=== PATIENT | female | born 1985 | race Caucasian/White ===

== ENCOUNTER 2023-03-03 10:32 | Emergency (ER) | payer MEDICAID, SELFPAY ==
[2023-03-03 10:37] VITALS: BP 133/97; PULSE 90; RESP 18; TEMP 36.6; O2SAT 100; BMI 21.6
[2023-03-03 10:38] VITALS: BP 133/97
--- NOTE | 2023-03-03 10:48 | ECG_ITS ---
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
--- NOTE | 2023-03-03 10:48 | XR_ITS ---
The [address] [address] Patient Name: MIHAELA GAN MRN: [id number] date: 1985 Sex: F Assigned Patient Location: ED.MAIN Current Patient Location: ED.MAIN Accession/Order Number: [id number] Exam Date: 03/03/2023 11:25 Report Date: 03/03/2023 12:07 At the request of: EUGENIO MAURO Procedure: XR chest 1V EXAM: XR chest 1V HISTORY: CP COMPARISON: None. TECHNIQUE: AP radiograph of the chest. FINDINGS: The cardiomediastinal silhouette and pulmonary vasculature are normal. The lungs are without focal consolidation, pneumothorax, or pleural effusion. No acute osseous abnormality. XR/XR chest 1V IMPRESSION: 1. No acute pulmonary abnormality. Electronically authenticated by: STEFANO PLASENCIA Date: 03/03/2023 12:07
--- NOTE | 2023-03-03 10:48 | ED.GENADUL1 ---
HPI - General Adult General Chief complaint: Urogenital-Female Stated complaint: CHEST PAIN Time Seen by Provider: 03/03/23 10:39 Source: patient Mode of arrival: walk-in Limitations: no limitations History of Present Illness HPI narrative: 37-year-old female presents for a bump on her left labia majora that she's had for three days. No drainage. When she woke up today she had pain in the middle and left side of her chest. No fever or cough or vomiting. No injury. No abdominal pain. Related Data Previous Rx's Medication Instructions Recorded cephalexin 500 mg capsule 500 mg PO QID 10 days #40 caps 03/03/23 sulfamethoxazole 800 1 tab PO BID 10 days #20 tabs 03/03/23 mg-trimethoprim 160 mg tablet (Bactrim DS) Allergies Allergy/AdvReac Type Severity Reaction Status Date / Time lurasidone [From Latuda] Allergy Intermediate Hives Verified 03/03/23 11:22 adhesive tape AdvReac Intermediate Verified 03/03/23 11:21 methocarbamol AdvReac Intermediate Verified 03/03/23 11:21 Review of Systems ROS Narrative A ten point review of systems is negative except as noted above. PFSH PFSH Social History Smoking status: Current every day smoker Exam Narrative Exam Narrative: Nurses note and vital signs reviewed and patient is not hypoxic. General: The patient appears well and in no apparent distress. Patient is resting comfortably on cart. Skin: Warm, dry, no pallor noted. There is no rash noted. Head: Normocephalic, atraumatic Eye: Normal conjunctiva, no drainage Ears, Nose, Mouth, and Throat: oral mucosa is moist. Nares patent. Cardiovascular: Regular Rate and Rhythm Respiratory: Patient is in no distress, no accessory muscle use, lungs are clear to auscultation, no wheezing, rales or rhonchi Back: non-tender GI: soft and nontender : Non-fluctuance area slightly smaller than a dime present on her left labia majora. No open areas or drainage. No surrounding erythema. Musculoskeletal: The patient has no evidence of calf tenderness, no pitting edema, symmetrical pulses noted bilaterally Neurological: A&O, normal speech Psychiatric: Cooperative Constitutional Vital Signs, click to edit/add: Last Vital Signs Temp 97.8 F 03/03/23 10:37 Pulse 96 H 03/03/23 11:30 Resp 14 03/03/23 11:30 BP 130/92 H 03/03/23 11:34 Pulse Ox 99 03/03/23 11:30 O2 Del Method Room Air 03/03/23 10:37 Course Vital Signs Vital signs: Vital Signs Temperature 97.8 F 03/03/23 10:37 Pulse Rate 90 03/03/23 10:37 Respiratory Rate 18 03/03/23 10:37 Blood Pressure 133/97 H 03/03/23 10:37 Pulse Oximetry 100 03/03/23 10:37 Oxygen Delivery Method Room Air 03/03/23 10:37 Temperature 97.8 F 03/03/23 10:37 Pulse Rate 96 H 03/03/23 11:30 Respiratory Rate 14 03/03/23 11:30 Blood Pressure 130/92 H 03/03/23 11:34 Pulse Oximetry 99 03/03/23 11:30 Oxygen Delivery Method Room Air 03/03/23 10:37 Medical Decision Making MDM Narrative Medical decision making narrative: EKG and chest x-ray are both negative. There is no indication for incision and drainage. 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 Treatment diagnosis and follow-up were discussed with the patient. She does not have Bartholin's abscess. Differential Diagnosis Differential Diagnosis: cellulitis, abscess, Bartholin cyst, Bartholin's abscess Imaging Data Chest x-ray: Radiologist's impression: Procedure: XR chest 1V EXAM: XR chest 1V HISTORY: CP COMPARISON: None. TECHNIQUE: AP radiograph of the chest. FINDINGS: The cardiomediastinal silhouette and pulmonary vasculature are normal. The lungs are without focal consolidation, pneumothorax, or pleural effusion. No acute osseous abnormality. IMPRESSION: 1. No acute pulmonary abnormality. Electronically authenticated by: STEFANO PLASENCIA Date: 03/03/2023 12:07 ECG Data Attestation: I personally reviewed and interpreted this ECG as follows: (EKG on my interpretation shows normal sinus rhythm with no acute changes.) Discharge Plan Discharge Chief Complaint: Urogenital-Female Clinical Impression: Abscess Patient Disposition: Home, Self-Care Time of Disposition Decision: 12:20 Condition: Good Mode of Transportation: Private Vehicle Prescriptions / Home Meds: New sulfamethoxazole-trimethoprim [Bactrim DS] 800-160 mg tablet 1 tab PO BID 10 Days Qty: 20 0RF cephalexin 500 mg capsule 500 mg PO QID 10 Days Qty: 40 0RF Instructions: Abscess (ED) Additional Instructions: follow-up with your icer machine operator Stand Alone Forms: Portal Instructions Referrals: Physician,Non-Staff, MD [Primary Care Provider] - 1 week
[2023-03-03 11:10] VITALS: PULSE 81; RESP 20; O2SAT 99
[2023-03-03 11:20] VITALS: PULSE 74; RESP 11; O2SAT 100
[2023-03-03 11:30] VITALS: PULSE 96; RESP 14; O2SAT 99
[2023-03-03 11:34] VITALS: BP 130/92
== END 2023-03-03 12:25 | disposition home or self-care (01) ==
PROVIDERS: Emergency Provider Emergency Medicine
DX: N76.4 Abscess of vulva (principal); R07.9 Chest pain, unspecified; F17.210 Nicotine dependence, cigarettes, uncomplicated
CPT/HCPCS: 71045; 93005; 99284